=== PATIENT | female | born 1990 | race Caucasian/White ===

== ENCOUNTER 2017-09-14 08:36 | Day surgery (SDC) | payer OTHER ==
[~2017-09-14] VITALS: Ht 157.5 cm; Wt 98.0 kg
[2017-09-14] VITALS (9 sets, daily range): BP systolic 100–129; BP diastolic 55–70
--- NOTE | ~2017-09-14 | O ---
[facility] [place] [address] OPERATIVE REPORT Name: MEGAN PATINO Room #: 401-I [facility]..#: [id number] Admission: 09/14/17 Attend Phys: Alex Lopez MD, F Discharge: Date of : 88 Report #: [id number] THIS REPORT FOR: //name// CC: Physician staff Alex Lopez DATE OF SERVICE: 09/14/2017 SURGEON: Alex Lopez M.D. PATIENT SERVICE TECHNICIAN PST: Mary Cheatham M.D. PREOPERATIVE DIAGNOSES: 1. Morbid obesity (body mass index 40.4). 2. Lumbago. 3. Anxiety. POSTOPERATIVE DIAGNOSES: 1. Morbid obesity (body mass index 40.4). 2. Lumbago. 3. Anxiety. PROCEDURE: Laparoscopic sleeve gastrectomy with EGD. ANESTHESIA: General endotracheal anesthesia and local anesthetic. ESTIMATED BLOOD LOSS: 5 mL. SPECIMEN: Lateral stomach. COMPLICATIONS: None appreciated. INDICATIONS FOR PROCEDURE: This is a 27-year-old female patient who stands 5 feet 2 inches and who weighed 220 pounds at her most recent office visit (BMI 40.4). She has tried numerous weight loss programs and plans with limited weight loss success. Any amount of weight she has lost, she has quickly regained plus additional weight after stopping the modality. She has been cleared from a multidisciplinary standpoint for bariatric surgery. She presents now for laparoscopic sleeve gastrectomy with EGD. OPERATIVE FINDINGS: On EGD, the patient's esophagus was normal down to the GE junction and Z-line measured at 38 cm from the teeth. The stomach and duodenum were normal without polyps, masses, diverticula, or ulcers. On retroflexion of the scope, there was no hiatal hernia. Laparoscopically, the patient's liver was slightly steatotic without alaina [facility] [address] [place] [address] OPERATIVE REPORT Name: MEGAN PATINO Room #: 401-I [facility]#: [id number] Admission: 09/14/17 Attend Phys: Alex Lopez MD, F Discharge: Date of : 88 Report #: [id number] steatohepatitis. Stomach was enlarged. The spleen, small bowel and colon and the surrounding area appeared otherwise normal. The gastric sleeve staple line was located 4 cm lateral/proximal to the pylorus, 3 cm lateral to the incisura and 1 cm lateral to the GE junction. There was no evidence for staple line leak after application of Tisseel to the staple line. Hemoclips were placed along the lower third of the staple line for hemostasis. The excised stomach held 1 liter of fluid. At the conclusion of the operation, sponge, needle, and instrument counts were correct. No other significant intra-abdominal pathology was seen and there was no evidence for iatrogenic injury. DESCRIPTION OF PROCEDURE IN DETAIL: After the risks, benefits, and expectations of the operation were discussed in detail with the patient, which include but are not limited to risks of bleeding, infection, staple line leak, postoperative pain, postoperative expectations, informed consent was obtained. The patient was identified in the preoperative holding area. She was given IV antibiotics as documented in the chart in line with SCIP metrics. The patient was then taken to the operating room and she was placed in the supine position. SCDs were placed on the patient's bilateral lower extremities and pneumatic compression was initiated. The patient was then given IV sedation and she was intubated without incident. A bite block and orogastric tube were placed by Anesthesia under my direction. The patient was placed in the low lying dorsal lithotomy position in Yellofin stirrups on the beanbag. The patient was secured to the bed. A time-out was performed to identify the correct patient and procedure. EGD was performed first. The gastroscope was inserted into the patient's oropharynx and passed down the esophagus into the stomach and beyond the pylorus to the third portion of the duodenum. The scope was then slowly withdrawn. With the scope withdrawn into the antrum of the scope, the scope was retroflexed and a retrograde view of the cardia was seen. The scope was then straightened and slightly withdrawn. The patient's abdomen was then prepped and draped in the standard sterile fashion. Local anesthetic was infiltrated into the skin and subcutaneous tissue in the left supraumbilical area where a small transverse incision was made. A 5 mm Visiport was placed intraperitoneally with a 0-degree angled laparoscope. Pneumoperitoneum was achieved with insufflation of carbon dioxide to 15 mmHg. A 30-degree angled laparoscope was then inserted. A 15 mm port was placed in the right mid abdomen under direct visualization after local anesthetic was infiltrated into the skin and subcutaneous tissue and an appropriately sized incision was made. Additional 5 mm ports were placed into the left mid and left lateral abdomen using a similar technique. The patient was then placed in the reverse Trendelenburg position. Local anesthetic was infiltrated into the skin and subcutaneous tissue in the subxiphoid area where a small transverse incision was made and a 5 mm Visiport obturator was used to penetrate the fascia to create a passageway for the Carolyn liver retractor. The retractor was held [address] [address] OPERATIVE REPORT Name: MEGAN PATINO Room #: 401-I [facility]#: [id number] Admission: 09/14/17 Attend Phys: Alex Lopez MD, F Discharge: Date of : 88 Report #: [id number] with the [employer] Shoe Maker apparatus. The gastroscope was positioned by Anesthesia under my direction to lie against the lesser curvature of the stomach and serve as a 34-Peruvian bougie. The gastrosplenic ligament and short gastric vessels were then divided with the ultrasonic dissector with good hemostasis up to the left modesta of the diaphragm. The gastrocolic ligament was divided in a similar fashion to an area that was measured to be 4 cm proximal to the pylorus. The stomach was then rotated medially and all posterior attachments were taken down with the ultrasound dissector with good hemostasis. The orogastric tube was then removed by Anesthesia under my direction. The gastric sleeve was then created in a distal to proximal fashion using the 65 mm powered MARIE stapler with each load being buttressed with Hyacinth-Strips. Two black loads were used initially with green loads to complete the sleeve. The stomach was then transected and removed through the 15 mm port site. An #0 PDS suture was placed with the Jorden-Bruna laparoscopic fascial closure device. The suture was tagged and the port was replaced. Tisseel was applied to the gastric sleeve staple line next. A 10 mL was applied after clips were placed on the distal stomach at the junction between the lower and middle thirds. The leak test was performed immediately after applying Tisseel to the staple line. No air bubbles were seen forming within the Tisseel with gentle insufflation of the sleeve with the EGD scope. Likewise, the lumen of the sleeve was hemostatic and smooth. The sleeve was decompressed with the scope and the scope was slowly withdrawn through the esophagus. No other significant intra-abdominal pathology was seen. The Carolyn liver retractor was removed under direct visualization. The port site fascial suture was tied under direct visualization to ensure no incorporation of intra-abdominal content. The abdominal cavity was then desufflated and the incisions were closed with interrupted subcuticular 4-0 Monocryl sutures and Dermabond. The excised stomach was filled on the backtable. The patient tolerated the procedure well. She was awakened, extubated, and taken to recovery room in stable condition with no apparent intraoperative complications. <ELECTRONICALLY SIGNED> By: Alex Lopez MD, FACS 09/14/17 2056 [id number] Alex Lopez MD, FACS /nt
--- NOTE | ~2017-09-14 | S ---
[facility] [place] [address] SURGICAL PATH RPT PROCEDURE Name: MEGAN PATINO Room #: DEP [facility] M.R.#: [id number] Admission: 09/14/17 Date of : 88 Discharge: 09/15/17 Report #: [id number] Path Case #: [id number] PATHOLOGY REPORT COLLECTION DATE: 09/14/2017 RECEIVED DATE: 09/14/2017 SUBMITTING PHYS: Dr. Alex Lopez OTHER PHYS: SPECIMEN(S) RECEIVED: A.Lateral stomach * * * * * * * * * * * * FINAL DIAGNOSIS: Lateral stomach, partial sleeve gastrectomy: - No diagnostic abnormalities present, history of morbid obesity. (IUV:rlm; 09/15/2017) PATHOLOGIST: Li Singh M.D. REPORT ELECTRONICALLY SIGNED BY: Li Singh M.D. DATE/TIME: 09/15/2017 15:37 * * * * * * * * * * * * GROSS PATHOLOGY: The specimen is received in formalin, labeled "Megan Malic and lateral stomach", is a portion of stomach (19 x 4.3 x 2.5 cm) with a stapled margin. The serosal surface is cheney-white and smooth. Opening the specimen reveals a cheney-red mucosa with no discrete polyps, masses and with usual folds. Communications Billing Analyst sections in A1. (SWS; 09/14/2017) CLINICAL HISTORY: Morbid obesity INITIAL CPT CODE(S): A; 19135 Professional services performed by [facility] at [facility] [address] [place] [address] Technical services performed by [facility] at [address] [place] [id number]. [facility] [address] [place] [address] SURGICAL PATH RPT PROCEDURE Name: MEGAN PATINO Room #: DEP [facility] [place]#: [id number] Admission: 09/14/17 Date of : 88 Discharge: 09/15/17 Report #: [id number] Path Case #: [id number] [facility] [address] [place] [id number] PHONE: [phone] DIRECTOR: Will Mccann M.D. * * * END OF REPORT * * *
[~2017-09-14 08:36] MED LIST: SYNTHROID50 MCG PO; VITAMINC500 PO
[2017-09-14 10:08] LABS: CREATININE 0.8 mg/dL (0.6-1.0); POTASSIUM 3.8 mmol/L (3.5-5.1)
[2017-09-14 10:14] LABS: TOTAL BILIRUBIN 0.9 mg/dL (<0.1-1.0); TOTAL PROTEIN 7.6 g/dL (6.4-8.2)
[2017-09-15] VITALS: BP 105/59
[2017-09-15 04:00] VITALS: BP 114/61
[2017-09-15 06:04] LABS: ABSOLUTE NEUTROPHILS 11.6 thou/uL (1.4-8.2); BASOPHILS 0.1 % (0.0-2.0); HEMATOCRIT 40.3 % (37.0-47.0); HEMOGLOBIN 13.9 gm/dL (12.0-15.0); LYMPHOCYTES 8.4 % (24.0-44.0); MCH 31.5 pg (26.0-34.0); MCHC 34.4 g/dL (28.0-37.0); MCV 91.4 fL (80.0-100.0); MONOCYTES 4.4 % (1.0-8.0); PLATELET COUNT 219 thou/uL (150-400); POLYS 87.1 % (36.0-66.0); RBC 4.41 mil/uL (4.20-5.00); RDW 13.1 % (10.5-14.5); WBC 13.4 thou/uL (4.0-11.0)
[2017-09-15 06:24] LABS: CALCIUM 8.5 mg/dL (8.5-10.1); CREATININE 0.7 mg/dL (0.6-1.0); POTASSIUM 3.7 mmol/L (3.5-5.1)
[2017-09-15 07:18] VITALS: BP 106/69
[2017-09-15] MEDS ORDERED: HYDROCODONE-ACE15 ML PO ×2 (09:06→09:14)
[2017-09-15 09:53] VITALS: BP 114/61
== END 2017-09-15 10:49 | disposition home or self-care (01) ==
LOC: TBA 08:36 → 4N 08:36 → OR 08:36 → 4N 12:27 → OR 15:47 → ENTRNSPT 09-15 10:42 → EDTRNSPTSTS 09-15 10:43 → OR 09-15 10:49
PROVIDERS: Surgery
DX: E66.01 Morbid (severe) obesity due to excess calories (principal); M54.5 Low back pain; F41.8 Other specified anxiety disorders; E03.9 Hypothyroidism, unspecified; K21.9 Gastro-esophageal reflux disease without esophagitis; Z90.49 Acquired absence of other specified parts of digestive tract; Z68.41 Body mass index [BMI] 40.0-44.9, adult; Z87.891 Personal history of nicotine dependence; Z98.890 Other specified postprocedural states; Z88.8 Allergy status to other drugs, medicaments and biological substances; Z79.899 Other long term (current) drug therapy
CPT/HCPCS: 50010; 50101; 50222; 50249; 50386; 50555; 50739; 50740; 50962; 51436; 51437; 52182; 52265; 53307; 53311; 54022; 54118; 55245; 56462; 56525; 56526; 57092; 62110; 62900; 70005

== ENCOUNTER 2020-01-03 19:29 | Emergency (ER) | payer OTHER ==
[~2020-01-03] VITALS: Ht 157.5 cm; Wt 63.5 kg
[~2020-01-03 19:29] MED LIST changes: +HYDROCODONE-ACE15 ML PO
[2020-01-03] MEDS ORDERED: SUMATRIPTAN PO (19:46)
[2020-01-03] MEDS ORDERED: PAROXETINE PO (19:47)
[2020-01-03] MEDS ORDERED: GOLI PO (19:47)
[2020-01-03] MEDS ORDERED: RANITIDINE 15MG/ML PO (19:48)
[2020-01-03] MEDS ORDERED: ONDANSETRON ODT4 MG PO (19:49)
[2020-01-03 20:22] LABS: ABSOLUTE NEUTROPHILS 5.5 thou/uL (1.4-8.2); BASOPHILS 0.9 % (0.0-2.0); EOSINOPHILS 0.7 % (0.0-3.0); HEMATOCRIT 39.9 % (37.0-47.0); HEMOGLOBIN 14.1 gm/dL (12.0-15.0); LYMPHOCYTES 26.8 % (24.0-44.0); MCH 32.8 pg (26.0-34.0); MCHC 35.4 g/dL (28.0-37.0); MCV 92.7 fL (80.0-100.0); MONOCYTES 4.8 % (1.0-8.0); PLATELET COUNT 208 thou/uL (150-400); POLYS 66.8 % (36.0-66.0); RDW 12.2 % (10.5-14.5); WBC 8.2 thou/uL (4.0-11.0)
[2020-01-03 20:36] LABS: CALCIUM 8.4 mg/dL (8.5-10.1); CREATININE 0.8 mg/dL (0.6-1.0)
[2020-01-03 21:25] VITALS: BP 106/69
[2020-01-03] MEDS ORDERED: VALIUM5 MG PO ×3 (21:32→21:38)
== END 2020-01-03 21:48 | disposition home or self-care (01) ==
LOC: ER 19:29
PROVIDERS: Emergency Medicine
DX: S16.1XXA Strain of muscle, fascia and tendon at neck level, initial encounter (principal); M54.9 Dorsalgia, unspecified; R42 Dizziness and giddiness; E03.9 Hypothyroidism, unspecified; Z90.49 Acquired absence of other specified parts of digestive tract; K21.9 Gastro-esophageal reflux disease without esophagitis; Z98.84 Bariatric surgery status; Z98.51 Tubal ligation status; Z79.899 Other long term (current) drug therapy; Z88.6 Allergy status to analgesic agent; X58.XXXA Exposure to other specified factors, initial encounter; Y93.89 Activity, other specified; Y92.89 Other specified places as the place of occurrence of the external cause; Y99.8 Other external cause status